=== PATIENT | female | born 1945 | race Caucasian/White ===

== ENCOUNTER 2017-10-16 13:57 | Emergency (ER) | payer MEDICARE ==
[2017-10-16] MEDS ORDERED: Metoprolol Tartrate IV* 1 MG/ML 5 ML VIAL IV ONE (14:21)
[2017-10-16 14:33] LABS: ABS Basophils 0.1 10^3/ul (0-0.2); ABS Eosinophils 0.2 10^3/ul (0-0.6); ABS Lymphocytes 2.4 10^3/ul (1.0-4.8); ABS Monocytes 0.7 10^3/ul (0-0.8); ABS Neutrophils 6.6 10^3/ul (1.5-7.7); ABS Nucleated RBC 0 10^3/ul; Eosinophil % 2.3 % (0-6); Hematocrit 42 % (35-47); Hemoglobin 14.3 g/dl (12.0-16.0); Lymphocyte % 23.9 % (25-47); Mean Corpuscular HGB Conc 34 g/dl (31-36); Mean Corpuscular Hemoglobin 32 pg (27-31); Mean Corpuscular Volume 94 fL (80-97); Mean Platelet Volume 8 um3 (7.4-10.4); Nucleated Red Blood Cells % 0.1; Platelet Count 288 10^3/ul (150-450); Red Blood Count 4.48 10^6/ul (4.0-5.4); Red Cell Distribution Width 14 % (10.5-15)
[2017-10-16] MEDS ORDERED: Adenosine* 3 MG/ML VIAL IV PUSH ONE (14:45)
--- NOTE | 2017-10-16 14:45 | RAD ---
HISTORY: Chest pain COMPARISONS: October 14, 2004 VIEWS: 1: frontal portable view of the chest at 2:28 PM FINDINGS: LINES AND TUBES: None. CARDIOMEDIASTINAL SILHOUETTE: The cardiomediastinal silhouette is normal for portable technique. PLEURA: The costophrenic angles are sharp. No pleural abnormalities are noted. LUNG PARENCHYMA: The lungs are clear. ABDOMEN: The upper abdomen is clear. There is no subphrenic gas. BONES AND SOFT TISSUES: No bone or soft tissue abnormalities are noted. IMPRESSION: NO ACTIVE CARDIOPULMONARY DISEASE.
[2017-10-16 14:49] LABS: EGFR Non-African American 41.5 (>60); INR 0.91 (0.77-1.02)
[2017-10-16 18:34] VITALS: BP 114/60
--- NOTE | 2017-10-17 13:41 | ED ---
[facility] Julia, scribed for Pankaj Blackwell MD on 10/16/17 at 1415 . Palpitations / Dysrhythmia - HPI Summary HPI Summary: This patient is a 72 year old F presenting to [facility] with a chief complaint of slightly improved palpitations/SVT for the past couple of hours. She describes her palpitations as fast and thumping. Patient denies skipped beats or chest pain. She states a history of SVT that she is able to self-regulate. She states she is able to briefly self-regulate her current symptoms, but return. She denies recent illness. Patient regularly takes Atenolol. - History of Current Complaint Chief Complaint: EDDysrhythmPalp Time Seen by Provider: 10/16/17 14:05 Hx Obtained From: Patient Onset/Duration: Lasting Hours Timing: Constant - with intermittent improvements Character: Fast, Pounding - "thumping" Related History: Similar Episode/Dx as - arrhythmia - Allergy/Home Medications Allergies/Adverse Reactions: Allergies Allergy/AdvReac Type Severity Reaction Status Date / Time No Known Allergies Allergy Verified 10/16/17 14:00 Home Medications: Home Medications Atenolol TAB* [Tenormin TAB* 50 MG] 50 mg PO DAILY 10/16/17 [History Confirmed 10/16/17] Diclofenac Sodium EC TAB* [Voltaren EC TAB*] 50 mg PO BID 10/16/17 [History Confirmed 10/16/17] FLUoxetine CAP* [PROzac CAP*] 10 mg PO DAILY 10/16/17 [History Confirmed ] Omeprazole CAP* [Prilosec CAP* 20 MG] 40 mg PO DAILY 10/16/17 [History Confirmed 10/16/17] PMH/Surg Hx/FS Hx/Imm Hx Endocrine/Hematology History: Reports: Hx Thyroid Disease - non medicated Denies: Hx Diabetes Cardiovascular History: Reports: Hx Supraventricular Ventricular Tachycardia Denies: Hx Hypertension History: Denies: Hx Renal Disease - Cancer History Cancer Type, Location and Year: Basal cell 2010 Hx Chemotherapy: No Hx Radiation Therapy: No - Surgical History Surgery Procedure, Year, and Place: Thyroiod cyst removal 1982 [facility] [place], L hip replacement 2013 [place] Infectious Disease History: No Infectious Disease History: Denies: Traveled Outside the [place] in Last 30 Days - Family History Known Family History: Positive: Other - breast CA - mother Negative: Cardiac Disease, Diabetes - Social History Hx Tobacco Use: Yes - Quit in 1981 Smoking Status (MU): Former Smoker Review of Systems Constitutional: Negative - recent illness Negative: Fever Positive: Palpitations. Negative: Chest Pain All Other Systems Reviewed And Are Negative: Yes Physical Exam - Summary Physical Exam Summary: Appearance: The patient is well-nourished in no acute distress and in no acute pain. Skin: The skin is warm and dry and skin color reflects adequate perfusion. HEENT: The head is normocephalic and atraumatic. The pupils are equal and reactive. The conjunctivae are clear and without drainage. Nares are patent and without drainage. Mouth reveals moist mucous membranes and the throat is without erythema and exudate. The external ears are intact. The ear canals are patent and without drainage. The tympanic membranes are intact. Neck: the neck is supple with full range of motion and non-tender. There are no carotid bruits. There is no neck vein distension. Respiratory: Chest is non-tender. Lungs are clear to auscultation and breath sounds are symmetrical and equal. Cardiovascular: Heart is irregular and tachycardic. There is no murmur or rub auscultated. There is no peripheral edema and pulses are symmetrical and equal. Abdomen: The abdomen is soft and non-tender. There are normal bowel sounds heard in all four quadrants and there is no organomegaly palpated. Musculoskeletal: There is no back tenderness noted. Extremities are non-tender with full range of motion. There is good capillary refill. There is no peripheral edema or calf tenderness elicited. Neurological: Patient is alert and oriented to person, place and time. The patient has symmetrical motor strength in all four extremities. Cranial nerves are grossly intact. Deep tendon reflexes are symmetrical and equal in all four extremities. Psychiatric: The patient has an appropriate affect and does not exhibit any anxiety or depression. Triage Information Reviewed: Yes Vital Signs On Initial Exam: Initial Vitals Temp Pulse Resp BP Pulse Ox 97.6 F 123 16 115/76 98 10/16/17 14:00 10/16/17 14:00 10/16/17 14:00 10/16/17 14:00 10/16/17 14:00 Vital Signs Reviewed: Yes Diagnostics - Vital Signs Vital Signs Temp Pulse Resp BP Pulse Ox 10/16/17 14:00 97.6 F 123 16 115/76 98 - Laboratory Lab Results: Lab Results 10/16/17 10/16/17 10/16/17 Range/Units 14:25 14:25 14:25 WBC 10.0 (3.5-10.8) 10^3/ul RBC 4.48 (4.0-5.4) 10^6/ul Hgb 14.3 (12.0-16.0) g/dl Hct 42 (35-47) % MCV 94 (80-97) fL MCH 32 H (27-31) pg MCHC 34 (31-36) g/dl RDW 14 (10.5-15) % Plt Count 288 (150-450) 10^3/ul MPV 8 (7.4-10.4) um3 Neut % (Auto) 66.1 (38-83) % Lymph % (Auto) 23.9 L (25-47) % Baker % (Auto) 6.6 (0-7) % Eos % (Auto) 2.3 (0-6) % Baso % (Auto) 1.1 (0-2) % Absolute Neuts (auto) 6.6 (1.5-7.7) 10^3/ul Absolute Lymphs (auto) 2.4 (1.0-4.8) 10^3/ul Absolute Monos (auto) 0.7 (0-0.8) 10^3/ul Absolute Eos (auto) 0.2 (0-0.6) 10^3/ul Absolute Basos (auto) 0.1 (0-0.2) 10^3/ul Absolute Nucleated RBC 0 10^3/ul Nucleated RBC % 0.1 INR (Anticoag Therapy) 0.91 (0.77-1.02) APTT 29.5 (26.0-36.3) seconds Sodium (133-145) mmol/L Potassium (3.5-5.0) mmol/L Chloride (101-111) mmol/L Carbon Dioxide (22-32) mmol/L Anion Gap (2-11) mmol/L BUN (6-24) mg/dL Creatinine (0.51-0.95) mg/dL Est GFR ( Amer) (>60) Est GFR (Non-Af Amer) (>60) BUN/Creatinine Ratio (8-20) Glucose (70-100) mg/dL Lactic Acid (0.5-2.0) mmol/L Calcium (8.6-10.3) mg/dL Magnesium (1.9-2.7) mg/dL Total Bilirubin (0.2-1.0) mg/dL AST (13-39) U/L ALT (7-52) U/L Alkaline Phosphatase (34-104) U/L Total Creatine Kinase (10-223) U/L CK-MB (CK-2) (0.6-6.3) ng/mL Troponin I (<0.04) ng/mL B-Natriuretic Peptide 153 H ( - 100) pg/mL Total Protein (6.4-8.9) g/dL Albumin (3.2-5.2) g/dL Globulin (2-4) g/dL Albumin/Globulin Ratio (1-3) TSH (0.34-5.60) mcIU/mL 10/16/17 10/16/17 10/16/17 Range/Units 14:25 14:25 17:08 WBC (3.5-10.8) 10^3/ul RBC (4.0-5.4) 10^6/ul Hgb (12.0-16.0) g/dl Hct (35-47) % MCV (80-97) fL MCH (27-31) pg MCHC (31-36) g/dl RDW (10.5-15) % Plt Count (150-450) 10^3/ul MPV (7.4-10.4) um3 Neut % (Auto) (38-83) % Lymph % (Auto) (25-47) % Baker % (Auto) (0-7) % Eos % (Auto) (0-6) % Baso % (Auto) (0-2) % Absolute Neuts (auto) (1.5-7.7) 10^3/ul Absolute Lymphs (auto) (1.0-4.8) 10^3/ul Absolute Monos (auto) (0-0.8) 10^3/ul Absolute Eos (auto) (0-0.6) 10^3/ul Absolute Basos (auto) (0-0.2) 10^3/ul Absolute Nucleated RBC 10^3/ul Nucleated RBC % INR (Anticoag Therapy) (0.77-1.02) APTT (26.0-36.3) seconds Sodium 137 (133-145) mmol/L Potassium 3.9 (3.5-5.0) mmol/L Chloride 106 (101-111) mmol/L Carbon Dioxide 22 (22-32) mmol/L Anion Gap 9 (2-11) mmol/L BUN 25 H (6-24) mg/dL Creatinine 1.27 H (0.51-0.95) mg/dL Est GFR ( Amer) 53.3 (>60) Est GFR (Non-Af Amer) 41.5 (>60) BUN/Creatinine Ratio 19.7 (8-20) Glucose 123 H (70-100) mg/dL Lactic Acid 1.2 (0.5-2.0) mmol/L Calcium 9.4 (8.6-10.3) mg/dL Magnesium 2.0 (1.9-2.7) mg/dL Total Bilirubin 0.60 (0.2-1.0) mg/dL AST 17 (13-39) U/L ALT 14 (7-52) U/L Alkaline Phosphatase 78 (34-104) U/L Total Creatine Kinase 74 (10-223) U/L CK-MB (CK-2) 2.8 (0.6-6.3) ng/mL Troponin I 0.00 0.00 (<0.04) ng/mL B-Natriuretic Peptide ( - 100) pg/mL Total Protein 6.9 (6.4-8.9) g/dL Albumin 4.0 (3.2-5.2) g/dL Globulin 2.9 (2-4) g/dL Albumin/Globulin Ratio 1.4 (1-3) TSH 0.49 (0.34-5.60) mcIU/mL Result Diagrams: 10/16/17 14:25 10/16/17 14:25 Lab Statement: Any lab studies that have been ordered have been reviewed, and results considered in the medical decision making process. - Radiology CXR Radiology Interpretation Completed By: Radiologist - NO ACTIVE CARDIOPULMONARY DISEASE. ED Physician has reviewed this report. - EKG 1411 Cardiac Rate: Tachycardia - 131 BPM EKG Rhythm: Sinus Tachycardia - junctional tachycardia EKG Interpretation: diffuse anterior septal T wave inversions EKG Comparison: No Significant Change - consistent with EKG on 06/07/18 1550 Cardiac Rate: NL - 75 BPM EKG Rhythm: Sinus Rhythm EKG Interpretation: T wave inversion anterior septally EKG Comparison: No Significant Change - consistent with previous EKG Course/Dx - Course Course Of Treatment: Ms. Rehman presented with rapid, irregular palpitations. She has had A-fib before and is taking a prophylactic beta sony. Usually she can stop it with valsalva and she has been able to today but today it is coming right back. She is relatively asymptomatic and very stable so we gave her a dose of lopressor. This dropped her pressure some but didn't change the rate at all. She was then cardioverted with 6 mgs of adenosine and stayed in sinus with a good rate and pressure. - Diagnoses Provider Diagnoses: SVT (supraventricular tachycardia) Discharge - Discharge Plan Condition: Stable Disposition: HOME Patient Education Materials: Supraventricular Tachycardia (ED) Referrals: Lizbeth Flynn MD [Primary Care Provider] - 1 Week (Follow up with your primary care physician in the next week. ) The documentation as recorded by the [facility] accurately reflects the service I personally performed and the decisions made by me, Pankaj Blackwell MD.
== END 2017-10-16 18:34 | disposition home or self-care (01) ==
LOC: ED 13:57
DX: I47.1 Supraventricular tachycardia (principal); Z87.891 Personal history of nicotine dependence
CPT/HCPCS: 36415; 71045; 80053; 82550; 82553; 83605; 83735; 83880; 84443; 84484; 85025; 85610; 85730; 93005; 96374; 96375; 99283; J0153; J3490